=== PATIENT | female | born 1960 | race Caucasian/White ===

== ENCOUNTER → 2017-11-03 10:16 | Outpatient (CLI) | payer BC, SELFPAY ==
--- NOTE | 2017-11-03 10:21 | MM_ITS ---
MM Dig screening mamm BI w/CAD CAD Screening COMPARISON: Digital mammograms 11/26/2013 and 01/25/2011 INDICATION: There is a history of breast cancer in patient's mother diagnosed after menopause in the patient's cousin diagnosed in her 30s. TECHNIQUE: Standard CC and MLO images were obtained. R2 CAD reviewed. FINDINGS: The breasts are composed primarily of fat with minimal scattered fibroglandular densities throughout each breast. There is a stable nodular density outer quadrant left breast likely intramammary node. A few scattered tiny benign-appearing microcalcifications in each breast. There is no suspicious lesion and there are no suspicious microcalcifications. IMPRESSION: Fibrofatty parenchyma no suspicious lesion seen BI-RADS Category: 2 Benign Finding(s) RECOMMENDED FOLLOW-UP: 1YR - 1 YEAR FOLLOW-UP (A letter has been sent to the patient regarding results of the study.)
== END ==
PROVIDERS: Family Provider Nurse Practitioner; PCP Family Medicine; Referring Provider Obstetrics & Gynecology Gynecology; Visit Provider Obstetrics & Gynecology Gynecology
DX: Z12.31 Encounter for screening mammogram for malignant neoplasm of breast (principal)
CPT/HCPCS: 77067

== ENCOUNTER → 2019-06-12 08:14 | Outpatient (CLI) | payer BC, SELFPAY ==
--- NOTE | 2019-06-12 08:19 | MM_ITS ---
PROCEDURE: MM DIG SCREENING MAMM BI W/CAD Patient Age:58Y CLINICAL INDICATION: SCREENING 58-year-old but postmenopausal female, no new complaints. No hormones. Family history: Mother with breast cancer age 58 maternal cousin with breast cancer age 30 COMPARISON: DIGMAMMS MAMMOGRAM SCREEN-DAY CARE DIRECTOR N/C from 11/24/2007 DIGMAMMS MAMMOGRAM SCREEN-DAY CARE DIRECTOR N/C from 09/19/2009 [facility] DIGITAL MAMM-SCREEN BILATERAL from 01/25/2011 [facility] DIG MAMM-SCREEN NUVIA from 11/26/2013 [facility] MM Dig screening mamm BI w/CAD from 11/03/2017 TECHNIQUE: Standard CC and MLO images were obtained. R2 CAD reviewed. FINDINGS: Minimal residual fibroglandular elements with moderate generalized fatty replacement.. No new dominant or suspicious mass, no suspicious calcifications, no significant change since previous studies.. Stable intramammary node lateral left breast. Stable axillary nodes, no new areas of concern IMPRESSION: Stable bilateral mammogram. No significant new areas of concern Bilateral follow-up 1 year BI-RAD Category: 1 Negative FOLLOW-UP: 1YR 1 Year Follow-up the the the the the the the (A letter has been sent to the patient regarding results of the study.) Dictated by: Dima Jack MD 06/14/2019 22:02 Electronically signed by Dima Jack MD in [place] 06/14/2019 22:02
== END ==
PROVIDERS: PCP Family Medicine; Visit Provider Obstetrics & Gynecology Gynecology
DX: Z12.31 Encounter for screening mammogram for malignant neoplasm of breast (principal)
CPT/HCPCS: 77067

== ENCOUNTER → 2021-11-24 13:14 | Outpatient (CLI) | payer BC, SELFPAY ==
--- NOTE | 2021-11-24 13:19 | MM_ITS ---
PROCEDURE INFORMATION: Exam: MG Bilateral Screening 3D Mammography Exam date and time: 11/24/2021 1:29 PM Age: 61 years old Clinical indication: Screening examination TECHNIQUE: Imaging protocol: Bilateral Screening tomosynthesis and 2D mammography including computer-aided detection (CAD) when performed. COMPARISON: 1. MG MM DIG SCREENING MAMM BI W/CAD 06/12/2019 8:41 AM 2. MG [facility] MM Dig screening mamm BI w/CAD 11/03/2017 10:29 AM FINDINGS: MAMMOGRAPHY: Breast composition: There are scattered areas of fibroglandular density. Mass: None. Architectural distortion: None. Calcifications: No suspicious calcifications. Asymmetric density: None. Skin thickening: None. Axillary adenopathy: None. IMPRESSION: No mammographic evidence of malignancy. Annual screening is recommended unless otherwise clinically indicated. ASSESSMENT: BI-RADS Category 1: Negative
== END ==
PROVIDERS: PCP Family Medicine; Visit Provider Family Medicine
DX: Z12.31 Encounter for screening mammogram for malignant neoplasm of breast (principal)
CPT/HCPCS: 77063; 77067

== ENCOUNTER → 2022-03-01 12:01 | Outpatient (CLI) | payer BC, SELFPAY ==
--- NOTE | 2022-03-01 12:17 | XR_ITS ---
FINAL REPORT CLINICAL HISTORY: UPPER RIGHT LIMB PAIN FINDINGS: RIGHT SHOULDER Three views demonstrate no acute fracture or dislocation. The visualized joint spaces are normally aligned. The soft tissues are unremarkable. IMPRESSION: No acute process. Reviewed, Interpreted and Dictated by Riaz Hart MD Transcribed by Cristal Page Authenticated and [facility]
== END ==
PROVIDERS: PCP Family Medicine; Visit Provider Nurse Practitioner Family
DX: M79.601 Pain in right arm (principal); M25.511 Pain in right shoulder
CPT/HCPCS: 73030

== ENCOUNTER 2023-11-02 12:16 | Emergency (ER) | payer BC, SELFPAY ==
[2023-11-02 12:17] VITALS: BP 187/81; PULSE 78; RESP 16; TEMP 36.6; O2SAT 95; BMI 35.4
[2023-11-02 12:28] VITALS: BP 187/81; PULSE 80; O2SAT 95
--- NOTE | 2023-11-02 12:32 | CA_ITS ---
FINAL REPORT TECHNIQUE: Ultrasound images of the deep venous system were obtained from the left groin to the calf veins. CLINICAL HISTORY: HTN. LLE edema x 48 hours. Patient states her had surgery 10/31/23 and she sat for 5-6 hours. Noticed swelling after this immobility. She states she took an aspirin yesterday and today as a precaution. COMPARISON: None FINDINGS: The deep venous system is normally compressible. Normal flow is identified. IMPRESSION: No evidence of left lower extremity DVT. Reviewed, Interpreted and Dictated by Riaz Hart MD Transcribed by Marcella Gilmore Authenticated and [facility]
--- NOTE | 2023-11-02 12:34 | HMH.EDGENADL ---
Discharge Plan Disposition Patient Disposition: Home, Self-Care Referrals Follow up/Referrals: Wu Du MD [Primary Care Provider] - See instructions Activity Restrictions/Add. Instructions Additional Instructions/Restrictions: No evidence of an emergent medical condition specifically no evidence of a blood clot in your lower extremity. You did have trace hematuria on your urinalysis I recommend you follow-up with primary care doctor to ensure resolution of this. This is nonspecific. I would recommend you use a compression stocking and elevation for the nonspecific swelling of your left lower extremity. Follow-up with Regarding this as well. Clinical Impressions Clinical Impression: Swelling of left lower extremity, Hematuria of unknown etiology Discharge ED Provider: Fallon Finnegan General Adult HPI General Chief complaint: Extremity Problem,Nontraumatic Stated complaint: swelling and pain in L lower leg Time Seen by Provider: 11/02/23 12:27 Mode of Arrival: Ambulatory Source of Information: Patient Limitations: No Limitations Description of Symptoms (Recalled from ER Triage Doc. by RN): Patient reports swelling and pain in her left calf muscle for a couple of days. States that she called her PCP who told her to come to the ER for evaluation. History of Present Illness HPI narrative: Patient is a 63-year-old female here with left lower extremity swelling. States that her recently had surgery and she was in the waiting room for 5 hours not very mobile and states that is when she began having symptoms. No shortness of breath or chest pain. No swelling anywhere outside of her left lower extremity. No redness or warmth. Related Data Allergies Allergy/AdvReac Type Severity Reaction Status Date / Time No Known Allergies Allergy Unverified 05/31/17 15:15 [facility] Disclaimer: The information contained in this section may have been updated after the patient was seen, as this information can be updated by other users. Social History Smoking Status: Never smoker alcohol intake: never current occupational status: other Travel in the last 8 weeks: None ROS Obtained: Yes All systems reviewed & no additional complaints except as documented Physical Exam General General appearance: alert Respiratory Respiratory exam: Present normal lung sounds bilaterally; Absent respiratory distress Cardiovascular Cardiovascular exam: Present regular rate and normal rhythm Extremities Exam Extremities exam: Present other (Left lower extremity is edematous from the knee down and swelling out of proportion to the right 2+ DP and PT pulses no erythema or warmth) Neurological Exam Neurological exam: Present alert and oriented X3 Medical Decision Making Raul Inquiry Pt receiving controlled substance: No Vital Signs: 11/02/23 12:17 11/02/23 12:28 11/02/23 12:45 Temperature 97.9 F Temperature Source Oral Pulse Rate 80 70 Pulse Rate [Radial] 78 Respiratory Rate 16 Blood Pressure 187/81 H 182/72 H Blood Pressure [Right Arm] 187/81 H Blood Pressure Mean [Right Arm] 116 Blood Pressure Source [Right Arm] Automatic Cuff Blood Pressure Position [Right Arm] Sitting 02 Sat by Pulse Oximetry 95 95 92 L Oxygen Delivery Method Room Air Room Air Room Air Lab Data Lab results reviewed: Yes I reviewed the patient's lab results. Lab Results 11/02/23 12:42: WBC 6.8, RBC 4.33, Hgb 12.9, Hct 38.8, MCV 89.6, MCH 29.7, MCHC 33.1, RDW 14.3, Plt Count 275, MPV 7.6, Neut % (Auto) 58.1, Lymph % (Auto) 33.2, Floyd % (Auto) 4.1, Eos % (Auto) 3.5, Baso % (Auto) 0.9, Neut # (Auto) 4.0, Lymph # (Auto) 2.3, Floyd # (Auto) 0.3, Eos # (Auto) 0.2, Baso # (Auto) 0.1, PT 9.9 L, INR 0.91, APTT 27.8, D-Dimer 0.40, Sodium 137, Potassium 4.1, Chloride 104, Carbon Dioxide 26, Anion Gap 11.1, BUN 18 H, Creatinine 0.90, Estimated Creat Clear 80, Estimated GFR 63, Est GFR ( Amer) 76, Glucose 142 H, Calcium 9.7, Total Bilirubin 0.2, AST 31, ALT 36, Alkaline Phosphatase 89, Total Creatine Kinase 91, NT-Pro-B Natriuret Pep 57.1, Total Protein 7.2, Albumin 4.4, Globulin 2.8, Albumin/Globulin Ratio 1.6 11/02/23 13:00: Urine Color Yellow, Urine Appearance Clear, Urine pH 5.5, Ur Specific [place] 1.010, Urine Protein Negative, Urine Glucose (UA) Negative, Urine Ketones Negative, Urine Blood 1+, Urine Nitrate Negative, Urine Bilirubin Negative, Urine Urobilinogen 0.2, Ur Leukocyte Esterase 1+ A 11/02/23 12:42 11/02/23 12:42 Orders (Tests/Meds): ORDERS Category Date Time Status BNP [NT Pro Brain Natriuretic Pep.] Stat Lab 11/02/23 12:42 Completed CBC w/Auto Diff [Complete Blood Count Auto Diff] Stat Lab 11/02/23 12:42 Completed CK [Creatine Kinase] Stat Lab 11/02/23 12:42 Completed CMP [Comprehensive Metabolic Panel] Stat Lab 11/02/23 12:42 Completed D-Dimer Stat Lab 11/02/23 12:42 Completed PT/PTT Stat Lab 11/02/23 12:42 Completed UA [Urinalysis and Microscopic] Stat Lab 11/02/23 13:00 Results Urine Culture Stat Micro 11/02/23 13:00 Received CA venous doppler LE LT Stat Y 11/02/23 12:32 Completed Medical Decision Narrative: 63-year-old female present today with isolated left lower extremity swelling differential includes protein-losing enteropathy, syndrome, heart failure, DVT etc. Labs and ultrasound have been ordered and will reassess after this workup is complete. Reassessment 1:44 PM I spoke with the ultrasound target aircraft technician who stated there was no DVT D-dimer also less than 0.5 this is not consistent with a DVT overall. I discussed this with the family. Labs otherwise unremarkable. Urinalysis however did have 1+ blood and leuks she has no signs or symptoms of a DVT will not treat for urinary tract infection. This is nonspecific in a postmenopausal patient she has been advised to follow primary care doctor to ensure resolution of her microscopic incisional hematuria. She has been also advised to wear compression stocking and elevation for the nonspecific swelling of the left lower extremity which at this point I presume is poor venous return and circulation. Overall not consistent with emergent medical condition patient discharged in stable condition. Critical Care Critical Care Time Critical Care Time: No
[2023-11-02 12:45] VITALS: BP 182/72; PULSE 70; O2SAT 92
[2023-11-02 12:54] LABS: Chloride 104 mmol/L (98-107); Sodium 137 mmol/L (136-145)
[2023-11-02 12:55] LABS: Potassium 4.1 mmoL/L (3.5-5.1)
[2023-11-02 12:56] LABS: Basophils # 0.1 K/mm3 (0-0.2); Basophils % 0.9 % (0.1-2.0); Eosinophils # 0.2 K/mm3 (0.0-0.4); Eosinophils % 3.5 % (0.1-12.0); Hematocrit 38.8 % (37.0-47.0); Hemoglobin 12.9 g/dL (12.2-16.2); Lymphocytes # 2.3 K/mm3 (0.7-4.5); Lymphocytes % 33.2 % (10-50); Mean Corpuscular HGB Conc 33.1 g/dL (31.8-35.4); Mean Corpuscular Hemoglobin 29.7 pg (27.0-31.2); Mean Corpuscular Volume 89.6 fl (81-99); Mean Platelet Volume 7.6 fl (7.4-10.4); Monocytes # 0.3 K/mm3 (0.1-1.0); Monocytes % 4.1 % (1.7-9.3); Neutrophils % 58.1 % (37.0-80.0); Platelet Count 275 K/mm3 (142-424); Red Blood Count 4.33 M/mm3 (4.20-5.40); Red Cell Distribution Width 14.3 % (11.5-17.5); White Blood Count 6.8 K/mm3 (4.8-10.8)
[2023-11-02 12:57] LABS: Alanine Aminotransferase 36 U/L (12-78); Alkaline Phosphatase 89 U/L (38-126); Anion Gap 11.1 mEq/L (5-15); Aspartate Amino Transferase 31 U/L (14-36); Bilirubin,Total 0.2 mg/dl (0.2-1.3); Blood Urea Nitrogen 18 mg/dl (7-17); Carbon Dioxide 26 mmol/L (22.0-30.0); Creatine Kinase 91 U/L (30-135); Creatinine Clearance Estimated 80 mL/min (50-200); Estimated Glomerular Filt Rate 63 ml/min (>60); GFR (African American) 76 ML/MIN (>60)
[2023-11-02 12:58] LABS: Albumin Level 4.4 g/dl (3.5-5.0); Albumin/Globulin Ratio 1.6 (1.1-1.8); Calcium 9.7 mg/dl (8.4-10.2); Globulin 2.8 g/dL (1.3-3.2); Glucose 142 mg/dl (74-100); Total Protein,Serum 7.2 g/dl (6.3-8.2)
[2023-11-02 13:03] LABS: Activated Partial Thrombo Time 27.8 seconds (22.8-30.6); INR 0.91 (0.9-1.1); Prothrombin Time 9.9 seconds (10.1-12.5)
--- NOTE | 2023-11-02 13:03 | PC.NURSE ---
Pt ambulatory to bathroom and back to room.
[2023-11-02 13:04] LABS: Microscopic, Urine URINE MICROSCOPIC (MICROSCOPIC)
[2023-11-02 13:16] LABS: Appearance,Urine CLEAR (Clear); Bilirubin,Urine Negative (Negative); Blood, Urine 1+ (Negative); Color,Urine YELLOW (Yellow); Glucose,Urine (UA) Negative (Negative); Ketones,Urine Negative (Negative); Leukocyte Esterase,Urine 1+ (Negative); Nitrate,Urine Negative (Negative); PH,Urine 5.5 (5.0-8.5); Protein,Urine Negative (Negative); Urobilinogen,Urine 0.2 EU/dl (0.2)
[2023-11-02 13:31] LABS: NT Pro Brain Natriuretic Pep. 57.1 pg/mL (0-125)
[2023-11-02 13:57] VITALS: BP 182/72; PULSE 70; RESP 18; TEMP 36.6; O2SAT 95
[2023-11-02 14:40] LABS: Bacteria,Urine Trace /lpf; Squamous Epithelial Cell,Urine Occasional #/hpf (0-5)
== END 2023-11-02 13:59 | disposition home or self-care (01) ==
PROVIDERS: Emergency Provider Student in an Organized Health Care Education/Training Program; PCP Internal Medicine
DX: R22.42 Localized swelling, mass and lump, left lower limb (principal); R31.9 Hematuria, unspecified; B96.89 Other specified bacterial agents as the cause of diseases classified elsewhere
CPT/HCPCS: 80053; 81001; 82550; 83880; 85025; 85378; 85610; 85730; 87086; 93971; 99284

== ENCOUNTER 2024-05-02 08:52 | Emergency (ER) | payer BC, SELFPAY ==
[2024-05-02 09:05] VITALS: BP 155/74; PULSE 87; RESP 20; TEMP 36.6; O2SAT 97; BMI 35.0
--- NOTE | 2024-05-02 09:07 | ED_ITS ---
Discharge Plan Prescriptions Prescriptions: New mupirocin 2 % ointment 1 applic topical TID 7 Days Qty: 15 0RF amoxicillin-pot clavulanate 500-125 mg tablet 1 tab PO BID Qty: 20 0RF No Action bupropion HCl 100 mg tablet 100 mg PO BID Patient Comments: TAKE 1 TABLET BY MOUTH TWICE DAILY nebivolol 5 mg tablet 5 mg PO DAILY Patient Comments: TAKE 1 TABLET BY MOUTH ONCE DAILY FOR 90 DAYS Contrave 8-90 mg Tablet Extended Release 1 tab PO HS Rx Instructions: and also take 2 tablets every morning - week 3 of therapy Referrals Follow up/Referrals: Ilya Duong MD [Primary Care Provider] - See instructions Milady Lipscomb DPM [Staff Physician] - See instructions Activity Restrictions/Add. Instructions Additional Instructions/Restrictions: Rest the extremity and elevate it as much time as possible for the next few days. Keep the wound clean and dry. Keep a dressing on it if you are going to be getting it dirty. Watch the wound for signs of worsening infection, such as worsening redness, swelling, drainage, fever. etc. Take tylenol for pain. Follow up with your regular doctor. GO TO THE ER FOR ANY WORSENING SYMPTOMS OR CONCERNS. I put in a referral to the client integration manager (Dr. Lipscomb). If you continue to have pain and other symptoms at the site please follow up with her. It's very hard to be completely sure all the thorn was removed. Clinical Impressions Clinical Impression: Puncture wound of foot, left, Need for Tdap vaccination Instructions Patient Instructions: Tetanus, Diphtheria, and Pertussis Vaccine, DI for Puncture Wound Print Language Print Language: Niuean Discharge ED Provider: Reji Gonsales [facility] General Stated complaint: foreign object in left foot Time Seen by Provider: 05/02/24 09:07 History of Present Illness Provider Complaint: She states that 4 days ago she went outside barefooted. She accidentally stepped on a thorn. She has had a puncture wound and pain of the bottom of her left foot. She states that her has tried to get the thorn out and she has saw her pcp for this. No one has been able to get the thorn out. Her tdap is not up to date. Related Data Home Medications ?Medication ?Instructions ?Recorded ?Confirmed bupropion HCl 100 mg tablet 100 mg PO BID 05/02/24 05/02/24 naltrexone 8 mg-bupropion 90 mg 1 tab PO HS 05/02/24 05/02/24 tablet,extended release (Contrave) nebivolol 5 mg tablet 5 mg PO DAILY 05/02/24 05/02/24 Previous Rx's ?Medication ?Instructions ?Recorded amoxicillin 500 mg-potassium 1 tab PO BID #20 tabs 05/02/24 clavulanate 125 mg tablet mupirocin 2 % topical ointment 1 applic topical TID 7 days #15 05/02/24 grams Allergies Allergy/AdvReac Type Severity Reaction Status Date / Time cefaclor (From Count Includes [facility]) Allergy Unknown Verified 05/02/24 09:15 allergy reaction [facility] Disclaimer: The information contained in this section may have been updated after the patient was seen, as this information can be updated by other users. Medical History (Updated 05/02/24 @ 11:15 by Reji Gonsales APRN) Hyperlipidemia Hypertension Social History (Updated 11/02/23 @ 13:46 by Fallon Finnegan MD) Smoking Status: Never smoker alcohol intake: never current occupational status: other Travel in the last 8 weeks: None ROS Obtained: Yes All systems reviewed & no additional complaints except as documented Constitutional Constitutional: Denies chills, Reports fever(s) and Reports poor appetite Eyes Eyes: Denies eye discharge ENT Ears, Nose, Mouth, and Throat: Denies ear discharge, Reports otalgia, Denies hearing loss, Denies sinus pain and Reports sore throat Cardiovascular Cardiovascular: Denies chest pain and Denies dyspnea Respiratory Respiratory: Denies chest congestion, Reports cough and Denies dyspnea Gastrointestinal Gastrointestingal: Denies abdominal pain, diarrhea, nausea or vomiting Musculoskeletal Musculoskeletal: Denies arthralgias Integumentary/Breasts Skin/Breast: Denies rash Physical Exam General General appearance: alert and in no apparent distress Head Head exam: atraumatic, normocephalic and normal inspection Eye Eye exam: Present normal appearance, PERRL and EOMI ENT ENT exam: Present normal exam, normal oropharynx, mucous membranes moist, TM's normal bilaterally and normal external ear exam Neck Neck exam: Present normal inspection, full ROM and trachea midline; Absent meningismus or lymphadenopathy Chest Chest inspection: Present normal inspection and symmetric chest wall rise; Absent tenderness Respiratory Respiratory exam: Present normal lung sounds bilaterally; Absent respiratory distress Cardiovascular Cardiovascular exam: Present regular rate and normal rhythm; Absent JVD Abdominal Exam Abdominal exam: Present soft and normal bowel sounds; Absent distention, tenderness or guarding Extremities Exam Extremities exam: Present normal inspection, full ROM and normal capillary refill; Absent calf tenderness Back Exam Back exam: Present normal inspection; Absent tenderness Neurological Exam Neurological exam: Present alert and oriented X3 Psychiatric Psychiatric exam: Present normal affect and normal mood Lymphatic Lymphatic Findings: no adenopathy Medical Decision Making Medical Records Medical records reviewed: No I reviewed the patient's medical records. Screening: Per USPSTF and CDC recommendations, given the prevalence of disease in our region, it is our hospital?s policy to screen for HIV and viral Hepatitis for all patients aged 18 and over and those with ongoing risk factors. Raul Inquiry Pt receiving controlled substance: No Procedures Risk/Benefits of Procedure(s) Were Explained: Yes Foreign Body Removal Time Out Performed: Yes Site: left and foot Description of foreign body: other (thorn) Sedation/Analgesia: none Technique: manual removal, removal with forceps and incision made to facilitate removal Confirmed by:: direct visualization and radiograph Complications: none Post-procedure exam: awake, alert, normal BP, normal HR and normal O2 sat Neurovascular: normal distal pulse, normal capillary fill, distal light touch sensation intact, distal motor function normal, no signs of compartment syndrome, no change from pre-procedure (She tolerated this procedure well, the site was anesthetized using 1 milliliter of 1% plain lidocaine. A small incision over the puncture wound was made using a #11 blade. The thorn was removed fairly easily after that using tweezers. A 0.75cm thorn was removed. the thorn was compeltely removed) and other
--- NOTE | 2024-05-02 09:43 | XR_ITS ---
FINAL REPORT CLINICAL HISTORY: something in it COMPARISON: None FINDINGS: LEFT FOOT Three views of the left foot demonstrate no acute fracture or dislocation. The visualized joint spaces are normally aligned. There is a moderate-sized plantar spur noted, as well as a moderate-sized Carin deformity. No radiopaque foreign body is identified. There is mild dorsal soft tissue swelling present. IMPRESSION: No acute bony abnormality. Moderate size plantar calcaneal spur, as well as a moderate-sized Carin deformity of the calcaneus. Reviewed, Interpreted and Dictated by Riaz Hart MD Transcribed by Haylee Snowden Authenticated and [facility]
[2024-05-02] MEDS: TET/DIPHTH/PERT-ADULT 0.5ML SYRINGE 0.5 ML IM (11:16)
[2024-05-02 11:19] VITALS: BP 155/74; PULSE 87; RESP 20; TEMP 36.6; O2SAT 97
== END 2024-05-02 11:25 | disposition home or self-care (01) ==
PROVIDERS: Emergency Provider Nurse Practitioner Family; PCP Family Medicine
DX: S91.332A Puncture wound without foreign body, left foot, initial encounter (principal); W60.XXXA Contact with nonvenomous plant thorns and spines and sharp leaves, initial encounter
CPT/HCPCS: 73630; 90471; 90715; 99213; G0381